=== PATIENT | female | born 1955 | race Caucasian/White ===

== ENCOUNTER 2019-10-06 10:40 | Day surgery (SDC) | payer OTHER ==
[~2019-10-06 10:40] MED LIST: AMBIEN10 MG PO; ETODOLAC400 MG PO; MUCIN PO; SKELAXIN800 MG PO
== END 2019-10-06 15:00 | disposition home or self-care (01) ==
LOC: CIR.AMB 10:40
DX: N84.0 Polyp of corpus uteri (principal)